=== PATIENT | female | born 1965 | race African-American/Black ===

== ENCOUNTER 2021-04-07 09:53 | Outpatient (CLI) | payer BC, SELFPAY ==
--- NOTE | ~2021-04-07 | MM_ITS ---
EXAMINATION: MM screening vimal BI w iglesia HISTORY: Screening mammogram TECHNIQUE: Craniocaudal and mediolateral oblique 3-D tomosynthesis images were obtained and synthetic 2-D images were generated. CAD analysis was submitted and interpreted. COMPARISON: 09/25/2015 BREAST PARENCHYMAL COMPOSITION: There are scattered areas of fibroglandular density. FINDINGS: There is no evidence of suspicious mass, calcification, or architectural distortion to sugg est malignancy in either breast. There has been no suspicious interval change. IMPRESSION: 1. No mammographic evidence of malignancy. 2. Recommend routine screening mammography in one year. BI-RADS Category 1: Negative Reviewed, dictated and finalized at location A.
--- NOTE | ~2021-04-07 | DEXA_ITS ---
Bone Density Report Name: Beth Schmitt Age: 56 Sex: Female Ethnicity: Black Date of : 1965 Indication: postmenopausal; Referring Provider: GentryCaryn Study: Bone densitometry was performed. Exam Date: April 07, 2021 Accession number: [id number] Bone Density: Region BMD T-score Z-score Classification AP Spine (L1-L4) 0.856 -1.7 -1.5 Osteopenia Femoral Neck (Left) 0.761 -0.8 -0.5 Normal Total Hip (Left) 0.965 0.2 0.1 Normal Total Hip Bilateral Avg 0.968 0.2 0.2 Normal Femoral Neck (Right) 0.766 -0.7 -0.5 Normal Total Hip (Right) 0.970 0.2 0.2 Normal World Health Organization criteria for BMD impression classify patients as: Normal (T-score at or above -1.0), Osteopenia (T-score between -1.0 and -2.5), or Osteoporosis (T-score at or below -2.5). 10-year Fracture Risk(1): Major Osteoporotic Fracture 2.4% Hip Fracture 0.1% Reported Risk Factors: [place] ([place]), Neck BMD=0.766, BMI=29.2 (1) FRAX(R) Version 3.08. Fracture probability calculated for an untreated patient. Fracture probability may be lower if the patient has received treatment. Clinical Information Provided by Patient: Has used the following medications: Vitamin D Patient maximum height was 68 Menopause Age: 44 Drinks caffeinated beverages Onset of menses at age 13 Number of children 3 Impression: The patient has low bone mass, based on the Total Spine T-score. The patient has an estimated ten-year risk of hip fracture of 0.1% and an estimated ten-year risk of major fracture of 2.4%, based on the WHO FRAX algorithm. Discussion: BONE DENSITY IS LOW AT ONE OR MORE SKELETAL SITES. This patient's lowest T-score is low at one or more skeletal sites. It meets the World Health Organization's (WHO) criteria for ?low bone mass? (T-score between -1.0 and -2.5). The patient's 10-year risk of fracture as calculated by FRAX is less than the threshold where pharmacological therapy is recommended by the National Osteoporosis Foundation (NOF). However, all treatment decisions require clinical judgment and consideration of individual patient factors, including patient preferences, comorbidities, previous drug use, risk factors not captured in the FRAX model (e.g., frailty, falls, vitamin D deficiency, increased bone turnover, interval significant decline in bone density) and possible under or overestimation of fracture risk by FRAX. The patient should follow a healthful lifestyle (good nutrition with adequate calcium and vitamin D, and appropriate weight-bearing exercise). Follow-Up: Consider repeating this study in 2 to 3 years to reassess this patient's status, or sooner if there is some new clinical indication. Reported by: on 04/07/2021 10:27:00 AM. Reviewed, dictated an
== END 2021-04-07 09:54 | disposition home or self-care (01) ==
PROVIDERS: PCP Internal Medicine; Visit Provider Internal Medicine
DX: Z12.31 Encounter for screening mammogram for malignant neoplasm of breast (principal); Z78.0 Asymptomatic menopausal state; M85.88 Other specified disorders of bone density and structure, other site
CPT/HCPCS: 77063; 77067; 77080

== ENCOUNTER 2023-10-30 12:43 | Outpatient (CLI) | payer OTHER, SELFPAY ==
--- NOTE | ~2023-10-30 | US_ITS ---
Pelvic ultrasound. Clinical History: Postmenopausal bleeding Technique: Realtime transabdominal and transvaginal scanning of the pelvis was performed. Color flow Doppler and Doppler spectral analysis were performed. Findings: The uterus is anteverted. The endometrial stripe has a thickness of 2-3 mm. There is somew hat ovoid, echogenic structure or material within the endometrial cavity measuring 9 x 3 x 5 mm. Smal l and the fluid also present in the endometrial cavity. Cervical nabothian cysts present. Neither ovary seen. No adnexal mass seen. There is no evidence of free fluid in the cul de sac. Impression: Echogenic material mass within the endometrial cavity. Diagnostic considerations include endometrial polyp versus blood products within the endometrial cavity. Consider hysteroscopy for further evaluati on. Reviewed, dictated and finalized at location . Impression: Echogenic material mass within the endometrial cavity. Diagnostic consideration s include endometrial polyp versus blood products within the endometrial cavity . Consider hysteroscopy for further evaluation.
== END 2023-10-30 12:44 | disposition home or self-care (01) ==
PROVIDERS: PCP Obstetrics & Gynecology; Visit Provider Obstetrics & Gynecology
DX: N95.0 Postmenopausal bleeding (principal)
CPT/HCPCS: 76830; 76856

== ENCOUNTER 2024-03-01 00:16 | Day surgery (SDC) | payer OTHER, SELFPAY ==
[2024-02-22 10:30] VITALS: BMI 30.1
--- NOTE | 2024-02-22 10:41 | SUR.PREOP ---
Report to the Outpatient Waiting Room, entrance under the green pavilion located off [facility], at time 6:30a.m on date 03/01/2024. Planned Procedure Time: 8:30a.m. Time changes happen often and if your time is changed the preop area will call you the afternoon before. - You and your visitor will be asked to self-screen and do not enter if you have any COVID symptoms. - A mask is optional within the hospital at this time. Patients may have clear liquids (water, carbonated beverages, clear teas, apple juice) until 3 hours prior to surgery with a maximum of 20 ounces. - No food from midnight until time of surgery - Infants may have breast milk until 4 hours before surgery, formula 6 hours prior to surgery. - Children will be allowed to drink immediately following surgery. If applicable, please bring a bottle or sippy cup to assist with drinking. Juice, water, soda, and popsicles are readily available. For infants on formula, please bring formula the day of surgery. Pacifiers are allowed. Take the following medications with a SIP of water the morning of surgery: N/A DO NOT STOP ANY OF YOUR OTHER PRESCRIPTION MEDICATIONS PRIOR TO SURGERY ?EXCEPT THE FOLLOWING Medications to discontinue per physician Vitamin and supplements Date to take last dose 02/27/2024 Please no make-up, nail burundian, hairspray, perfume, deodorant, or body powder the day of surgery. No jewelry (including any body piercings) or valuables the day of surgery, leave them at home. Please take a shower or bath the night before, or the morning of, surgery with an antibacterial soap. Wear comfortable, loose fitting clothing. Children are encouraged to wear pajamas. - Jewelry must be removed prior to entering the operating room. Rings and piercings that are not removed may be cut off. - The hospital will not accept responsibility for valuables. - Please leave all valuables, including medications, at home the day of surgery. If you are going home after surgery, a licensed truss driver helper must drive you home. - NO public transportation without another adult if you receive anesthesia. - We recommend that an adult stay with you for 24 hours following discharge. - We also recommend that you do not drive, make important decision, drink alcoholic beverages, or take any drugs that were not prescribed by your health care provider for at least 24 hours after your discharge time. For Pediatric surgeries, we recommend two adults accompany the child home. Follow any additional instructions given to you from your surgeon. If you or anyone in your household have experienced Covid symptoms in the past week, please notify your surgeon or the nurse liaison at the phone number below for possible testing. Telephone instructions given to Beth Schmitt and asked if any additional questions and then verbalized understanding. Patient advised to call surgeon office or pre surgery nurse liaison [phone] if any additional questions.
[2024-03-01 06:33] VITALS: BP 128/75; PULSE 70; RESP 16; TEMP 36.1; O2SAT 100
[2024-03-01 06:35] VITALS: BMI 30.8
[2024-03-01] MEDS: LACTATED RINGERS 1,000 ML 30 ML IV CONT ×2 (07:00→09:22)
[2024-03-01] MEDS: ACETAMINOPHEN 500 MG TABLET 1000 MG PO (07:20)
--- NOTE | 2024-03-01 07:26 | WPDHPUPDATE1 ---
History and Physical Update Update Date/Time: 03/01/24 07:26 History and Physical has been reviewed, including an updated exam of the patient. There are NO changes in the patient's condition. Risks, benefits, and alternatives have been discussed and questions answered. Patient agrees to proceed with procedure.
--- NOTE | 2024-03-01 07:34 | WPDANESEPPF ---
Anes - Initial Pre Proc Eval Procedure: Operation Date: 03/01/24 08:30 Proposed Procedures p Hysteroscopy Dilation and Curettage with Endometrial Ablation - Sal Chavez MD Date/Time: 03/01/24 07:34 Surgeon: Sal Chavez MD Pre Op Diagnosis: abnormal ultrasound finding, post menopausal bleed Patient Data Age: 58 Gender: F Height: 1.73 m Weight: 92 kg Last Vital Signs Temp 96.9 F L 03/01/24 06:33 Pulse 70 03/01/24 06:33 Resp 16 03/01/24 06:33 BP 128/75 03/01/24 06:33 Pulse Ox 100 03/01/24 06:33 O2 Del Method Room Air 03/01/24 06:33 Allergies Allergy/AdvReac Type Severity Reaction Status Date / Time Sulfa (Sulfonamide Allergy Unknown Unknown Verified 03/01/24 07:26 Antibiotics) Home Medications Medication Instructions Recorded Confirmed Type provitilze 2 tablet .Route DAILY 09/14/23 02/22/24 History cetirizine 10 mg capsule (Zyrtec) 10 mg PO DAILY #90 caps 02/12/24 02/22/24 Rx spironolactone 100 mg tablet 50 mg PO DAILY #90 tabs 02/21/24 02/22/24 Rx Women's Multiple Vitamins 4 tablet PO DAILY 02/22/24 02/22/24 History Patient hx anesthesia problems: none Family hx anesthesia problems: none Results Review: All pre-operative results and documents have been reviewed as part of the pre-operative evaluation. [facility] Past Medical History Medical History Arthritis of both knees History of ovarian cyst Seasonal allergies Surgical History Surgical History H/O dilation and curettage Previous section x 3 Family History Family History Grandparent Hypertension, Onset Age: 46 Cerebrovascular accident, Onset Age: 46 Other Family history of malignant neoplasm of breast Family history of malignant neoplasm of breast in first degree relative Family history of rheumatoid arthritis Social History Social History Years smoked: 17 Smoking status: Former smoker Tobacco type: cigarettes Second hand tobacco smoke exposure: No Smoking end date: 08/14/10 Alcohol intake: current Drinks per week: 3 Substance use: never Substance use type: does not use Do You Feel Safe in your Home?: Yes Lack of Transportation: No Lack of Food: Never True Current Housing: I Have Housing Concerned About Future Housing: No Difficulty Paying Gas/Electric Bills: No Difficulty Paying for Meds: No Currently Unemployed: No Difficulty w/ Childcare or Family Care: No Living arrangements: with family Spiritual care concerns: No Anes - Eval Final PreProcedure Day of Procedure 03/01/24 07:34 Patient weight: overweight Heart: regular rate and rhythm Lungs: clear to auscultation Airway: Mallampati scale class II and special considerations (R upper tooth w 3 gems, pt states solid and not easily removable. ) Neurological: alert and oriented Last oral intake: >/= 8 hours ASA classification: II Emergent: no Anesthetic plan: proceed Anesthesia type and monitoring: general GIVS and standard monitoring Results Review: All pre-operative results and documents have been reviewed as part of the pre-operative evaluation. Informed Consent: The patient's anesthetic plan and its attendant risks and benefits were discussed with the patient/family/POA. Questions were solicited and answers provided to the satisfaction of the patient/family/POA.
[2024-03-01] MEDS: LIDOCAINE HCL 1% LOCAL INJ 20 ML VIAL 10 ML INFILTRATE (08:19)
[2024-03-01] MEDS: ceFAZolin 2 GM/D5W 50 ML 2 GM/50 ML BAG IVPB (08:19)
[2024-03-01 09:22] VITALS: BP 123/79; PULSE 64; RESP 14; O2SAT 99
--- NOTE | 2024-03-01 09:30 | W.PM.PROC2 ---
Procedure Note - Detailed Date of Procedure 03/01/24 Pre-op Diagnosis abnormal ultrasound finding, post menopausal bleed Post-op Diagnosis Other (Foreign object in cervical canal) Procedure Performed Dilation and curettage hysteroscopy with removal of foreign object which was retained stitch Surgeon Sal Chavez MD Anesthesia MAC and Local Indications abnormal ultrasound finding Findings uterus sound to 7 and 0.5 cm the uterine cavity was atrophic appearing at the upper cervix was a large stitch it looked like at the Villalba stitch that was approximately 2 cm long and imbedded in the upper cervix lower uterine segment area which was removed there was a small residual thread at the insertion site that could not be removed Description of Procedure after informed consent was obtained patient was taken to operating room and adequate IV sedation was administered she was placed in high lithotomy position and prepped and draped in sterile fashion attention was turned to the vagina speculum inserted single-tooth tenaculum placed on the anterior lip of the cervix. 10 cc 1% lidocaine was injected at the cervical vaginal interface at 2:58 a.m. and 10 position. The uterus was sound to 7.5 cm. And a dilator size 4 was passed. The hysteroscope was inserted. Findings per above. The rest of the cavity was normal. Several instruments were used to grab the suture it was grabbed in pieces. It appeared to be approximately 2 cm long and embedded at the upper cervix lower uterine segment area. It appeared to be a 0 Ethibond stitch. The hysteroscopic grasper scissors and the MyoSure instrument were used to remove suture in multiple pieces. Also the myoma forceps and cove working instruments were used. There remained a small very small mm size residual piece of the stitch at its insertion which would not unattach. Curettage performed minimal tissue obtained. Estimated Blood Loss 5 Drains No Packing No Pathology Yes (endometrial curettings scant) Complications No immediate complications Condition Stable Disposition Same day [facility] Billing Surgery - Charge Forward: Surgery Billing
[2024-03-01 09:50] VITALS: BP 129/83; PULSE 60; RESP 16; O2SAT 99
[2024-03-01] MEDS: oxyCODONE HCL (*CRX) 5 MG TAB IR PO (09:50)
[2024-03-01 10:10] VITALS: BP 120/67; PULSE 62; RESP 16
== END 2024-03-01 10:20 | disposition home or self-care (01) ==
PROVIDERS: Visit Provider Obstetrics & Gynecology
PROC: 0U5B8ZZ Destruction of Endometrium, Via Natural or Artificial Opening Endoscopic (ICD-10-PCS; CPT 58563; principal; 2024-03-01 08:30)
DX: R93.89 Abnormal findings on diagnostic imaging of other specified body structures (principal); N95.0 Postmenopausal bleeding; T19.3XXA Foreign body in uterus, initial encounter; Z87.891 Personal history of nicotine dependence
CPT/HCPCS: 58558; 88305; A9270; J0690; J2250; J2405; J2704; J3010; J7120

== ENCOUNTER 2024-03-14 12:44 | Emergency (ER) | payer OTHER, SELFPAY ==
[2024-03-14 12:54] VITALS: BP 143/84; PULSE 84; RESP 16; TEMP 36.7; O2SAT 100
--- NOTE | 2024-03-14 12:54 | ED.SKABFB ---
HPI - Skin/Abscess/Foreign Bdy General Chief complaint: Skin/Abscess/Foreign Body Stated complaint: SKIN IRRITATION Time Seen by Provider: 03/14/24 12:55 Source: patient, RN notes reviewed and old records reviewed Mode of arrival: ambulatory Limitations: no limitations History of Present Illness HPI narrative: 58-year-old female to [facility] complaint rash to bilateral axilla that started yesterday. Patient reports changing her deodorant approximately 3 weeks ago without an issue. Patient states that yesterday she used her new deodorant and layered her old deodorant over it. Patient endorses the rash began shortly after. Patient has attempted to treat the area by keeping it clean and dry. patient denies any other potential irritants, pertinent medical history, cough, fever, shortness of breath, recent illness. Respirations even and nonlabored. Patient in no acute distress. Related Data Home Medications Medication Instructions Recorded Confirmed provitilze 2 tablet .Route DAILY 09/14/23 03/14/24 Women's Multiple Vitamins 4 tablet PO DAILY 02/22/24 03/14/24 Allergies Allergy/AdvReac Type Severity Reaction Status Date / Time Sulfa (Sulfonamide Allergy Unknown Unknown Verified 03/14/24 12:53 Antibiotics) Review of Systems Review of Systems: All systems reviewed & are unremarkable except as noted in HPI and below Constitutional: Constitutional: Reports no additional constitutional complaints Eyes: Eyes: Reports no additional eye complaints ENT: Reports system reviewed and no additional complaints, except as documented Cardiovascular: Cardiovascular: Reports no additional cardiovascular complaints, Denies chest pain and Denies dyspnea Respiratory: Respiratory: Reports no additional respiratory complaints, Denies cough and Denies dyspnea Musculoskeletal: Musculoskeletal: Reports no additional musculoskeletal complaints Integumentary/Breasts: Skin/Breast: Reports as per HPI and Reports rash (bilateral axilla) Neurologic: Reports system reviewed and no additional complaints, except as documented Psychiatric: Psychiatric: Reports no additional psychiatric complaints PMFSH Past Medical History Medical History Arthritis of both knees History of ovarian cyst Seasonal allergies Surgical History Surgical History H/O dilation and curettage Previous section x 3 Family History Family History Grandparent Hypertension, Onset Age: 46 Cerebrovascular accident, Onset Age: 46 Other Family history of malignant neoplasm of breast Family history of malignant neoplasm of breast in first degree relative Family history of rheumatoid arthritis Social History Social History Years smoked: 17 Smoking status: Former smoker Tobacco type: cigarettes Second hand tobacco smoke exposure: No Smoking end date: 08/14/10 Alcohol intake: current Drinks per week: 3 Substance use: never Substance use type: does not use Do You Feel Safe in your Home?: Yes Lack of Transportation: No Lack of Food: Never True Current Housing: I Have Housing Concerned About Future Housing: No Difficulty Paying Gas/Electric Bills: No Difficulty Paying for Meds: No Currently Unemployed: No Difficulty w/ Childcare or Family Care: No Living arrangements: with family Spiritual care concerns: No Comments At the time of my signature, I reviewed and agree with the nursing past medical, surgical, social, and family history. There is no relevant family history pertinent to the patient complaint. Exam Const: General: cooperative, healthy appearing, comfortable, no acute distress, alert and well nourished Nutritional Appearance: well nourished Orientat
== END 2024-03-14 13:18 | disposition home or self-care (01) ==
PROVIDERS: Emergency Provider Nurse Practitioner Family
DX: L25.9 Unspecified contact dermatitis, unspecified cause (principal); Z87.891 Personal history of nicotine dependence; M17.0 Bilateral primary osteoarthritis of knee
CPT/HCPCS: 99211; G0463

== ENCOUNTER 2024-07-05 15:12 | Outpatient (CLI) | payer OTHER, SELFPAY ==
--- NOTE | ~2024-07-05 | MM_ITS ---
EXAMINATION: MM screening vimal BI w iglesia HISTORY: Screening mammogram TECHNIQUE: Craniocaudal and mediolateral oblique 3-D tomosynthesis images were obtained and synthetic 2-D images were generated. CAD analysis was submitted and interpreted. COMPARISON: 04/07/2021 bilateral screening mammogram BREAST PARENCHYMAL COMPOSITION: The breasts are almost entirely fatty. FINDINGS: There is no evidence of suspicious mass, calcification, or architectural distortion to sugg est malignancy in either breast. There has been no suspicious interval change. IMPRESSION: 1. No mammographic evidence of malignancy. 2. Recommend routine screening mammography in one year. BI-RADS Category 1: Negative Reviewed, dictated and finalized at location A. [employer]
== END 2024-07-05 15:13 | disposition home or self-care (01) ==
LOC: ANHIMG 15:14
PROVIDERS: PCP Family Medicine; Visit Provider Obstetrics & Gynecology
DX: Z12.31 Encounter for screening mammogram for malignant neoplasm of breast (principal)
CPT/HCPCS: 77063; 77067

== ENCOUNTER 2025-07-07 13:46 | Outpatient (CLI) | payer OTHER, SELFPAY ==
--- NOTE | ~2025-07-07 | MM_ITS ---
EXAMINATION: MM screening vimal BI w iglesia HISTORY: Screening TECHNIQUE: Craniocaudal and mediolateral oblique 3-D tomosynthesis images were obtained and synthetic 2-D images were generated. CAD analysis was submitted and interpreted. COMPARISON: No prior mammogram is available for comparison at this institution. BREAST PARENCHYMAL COMPOSITION: Not dense: There are scattered areas of fibroglandular density. FINDINGS: There is no evidence of suspicious mass, calcification, or architectural distortion to suggest malignancy in either breast. There has been no suspicious interval change. IMPRESSION: 1. No mammographic evidence of malignancy. 2. Recommend routine screening mammography in one year. BI-RADS Category 1: Negative Reviewed, dictated and finalized at location [facility]
--- OUTSIDE RECORDS SUMMARY | 2025-07-07 16:18 | XMS_ITS | Clinical Summary ---
Author Organization [facility] [place] [address] Address [address] [facility] 5th [place] [address] Care Team Providers Care Business Analysis Professional Name Role Phone Stacy Santos Primary Care Provider [phone] Sal Chavez MD Unavailable [phone] Allergies Active Allergy Reactions Criticality Noted Date Comments Sulfa Anaphylaxis High 02/27/2025 Medications cetirizine (ZyrTEC) 10 mg tabletIndication s:Non-seasonal allergic rhinitis, unspecified trigger Take 1 tablet (10 mg total) by mouth daily 90 tablet 3 5 06/26/20 26 Active cetirizine (ZyrTEC) 10 mg tabletIndication s:Non-seasonal allergic rhinitis, unspecified trigger Take 1 tablet (10 mg total) by mouth daily 90 tablet 2 5 06/26/20 25 Discontinu ed(Reorder ) Active Problems Problem Noted Date Diagnosed Date Paresthesia of both hands 02/27/2025 Assessment & Plan (02/27/2025 4:58 PM CDT): 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 Nerve conduction study ordered. Referred to Hand specialist for further eval/mgmt. Positive serological test result 06/12/2024 Overview (06/12/2024): Reactive screening HBV test HBsAg non reactive Anti-HBc REACTIVE Anti-HBs non reactive Non-seasonal allergic rhinitis 06/11/2024 Assessment & Plan (06/26/2025 12:18 PM RECORD KEEPER): Clinically improved, continue current prescription medications, cetirizine. Assessment & Plan (06/11/2024 2:55 PM CDT): Stable. Cont. Current prescription medications. Dry skin dermatitis 06/11/2024 Assessment & Plan (06/11/2024 11:36 AM CDT): Trial of OTC hydrocortisone ointment, bid for up to 2 wks prn rash. Encounters Date Type Department Care Team Description 06/26/2025 11:00 AM RECORD KEEPER Lab [facility] Lab [address] [place] [address] Annual physical exam; Screening for blood or protein in urine; Screening for thyroid disorder; Encounter for lipid screening for cardiovascular disease; Encounter for screening examination for impaired glucose regulation and diabetes mellitus; Encounter for screening for other digestive system disorders; Screening for deficiency anemia 06/26/2025 10:15 AM RECORD KEEPER Office Visit [facility] Family Medicine at [facility] [address] [facility] [address] [place] [address] Stacy Santos DO Annual physical exam (Primary Dx); Non-seasonal allergic rhinitis, unspecified trigger; Screening for deficiency anemia; Encounter for screening for other digestive system disorders; Encounter for screening examination for impaired glucose regulation and diabetes mellitus; Encounter for lipid screening for cardiovascular disease; Screening for thyroid disorder; Screening for blood or protein in urine; Encounter for screening mammogram for malignant neoplasm of breast 06/26/2025 Results Follow-Up [facility] Family Medicine at [facility] [address] [facility] [address] [place] [address] Stacy Santos DO Thyroid Function [facility], Lipid panel, Hemoglobin A1c, Additional followed-up results: 5 from Last 3 Months Immunizations Immunization Administration Dates Next Due Hep A, Adult 07/18/2017 Influenza, Unspecified 06/24/2025(Deferr ed: Patient Refused),06/11/2024(Deferred: Worship exemption),05/14/2024(Deferred: Patient Refused),05/14/2023(Deferred: Patient Refused) Surgical History Surgery Date Site/Laterality Comments SECTION DILATION AND CURETTAGE OF UTERUS Family History Medical History Relation Name Comments Alcohol abuse Father Arthritis Father Heart disease Father Hypertension Father Relation Name Status Comments Father Mother Alive Social History Tobacco Use Types Packs/Day Years Used Date Smoking Tobacco: Never Smokeless Tobacco: Never Tobacco Cessation:Counseling Given: Not Answered Alcohol Use Standard Drinks/Week Comments Yes 0 (1 standard drink = 0.6 oz pur e alcohol) PHQ-2 Answer Date Recorded PHQ-2 Total Score (If total score is 3 or more points, staff should administer the PHQ-9) 0 06/26/2025 PHQ-9 Answer Date Recorded PHQ-9 Total Score 3 06/26/2025 AUDIT-C Answer Date Recorded Q1: How often do you have a drink containing alc ohol? Monthly or less 06/26/2025 Q2: How many drinks containi ng alcohol do you have on a typical day when you are drinking? 1 or 2 06/26/2025 Q3: How often do you have si x or more drinks on one occasion? Never 06/26/2025 Comments No Sex and Gender Information Value Date Recorded Sex Assigned at Not on file Legal Sex Female 6:21 PM RECORD KEEPER Gender Identity Female 06/12/2024 1:12 PM CDT Sexual Orientation Not on file Last Filed Vital Signs Vital Sign Reading Time Taken Comments Blood Pressure 128/72 06/26/2025 10:01 AM RECORD KEEPER Pulse 72 06/26/2025 10:01 AM RECORD KEEPER Temperature 36.7 C (98 F) 06/26/2025 10:01 AM RECORD KEEPER Respiratory Rate 16 06/26/2025 10:01 AM RECORD KEEPER Oxygen Saturation 99% 06/26/2025 10:01 AM RECORD KEEPER Inhaled Oxygen Concentration - - Weight 94.2 kg (207 lb 9.6 oz) 06/26/2025 10:01 AM RECORD KEEPER Height 175.3 cm (5' 9) 02/27/2025 3:56 PM CDT Body Mass Index 30.66 02/27/2025 3:56 PM CDT Plan of Treatment Health Maintenance Due Date Last Done Comments Covid-19 Vaccine (2024-09 6 season) 2025 07/30/2021, 11/08/2020 Breast Cancer Screening-Mammogram 07/05/2025 07/05/2024 Influenza Vaccine (#1) 2026 Postp oned from 04/14/2025 (Patient declined, but will receive in the future) Zoster Vaccine (1 of 2) 02/27/2026 Post poned from 2016 (Insurance / Financial) Depression Screening 06/26/2026 06/26/2025, 06/26/2025, 06/11/2024 Regular Well Visit/Exam 18-64 06/26/2026, 06/11/2024 DTaP/Tdap/Td Vaccine (1 - Tdap) 02/27/2027 Postponed from 03/29 (Insurance / Financial) Colon Cancer Screening-Colonoscopy 03/21/2027 03/21/2017 Cervical Cancer Screening 02/13/2029 02/14/2024 Hepatitis B Screening Completed 09/13/2024 Hepatitis C Screening Completed 09/13/2024 , 06/11/2024 Pneumococcal vaccine <65 Aged Out No longer eligible based on patient's age to complete this topic Procedures Procedure Name Priority Date/Time Associated Diagnosis Comments URINALYSIS AND REFLEX TO MICROSCOPIC AND CULTURE Routine 06/26/2025 11:05 AM RECORD KEEPER Annual physical exam Screening for blood or protein in urine EGFR Routine 06/26/2025 11:02 AM RECORD KEEPER Annual physical exam Encounter for screening for other digestive system disorders DIFFERENTIAL AUTO Routine 06/26/2025 11:02 AM RECORD KEEPER Annual physical exam Screening for deficiency anemia CBC WITH AUTO DIFFERENTIAL Routine 06/26/2025 11:02 AM RECORD KEEPER Annual physical exam Screening for deficiency anemia COMPREHENSIVE METABOLIC PANEL Routine 06/26/2025 11:02 AM RECORD KEEPER Annual physical exam Encounter for screening for other digestive system disorders HEMOGLOBIN A1C Routine 06/26/2025 11:02 AM RECORD KEEPER Annual physical exam Encounter for screening examination for impaired glucose regulation and diabetes mellitus LIPID PANEL Routine 06/26/2025 11:02 AM RECORD KEEPER Annual physical exam Encounter for lipid screening for cardiovascular disease THYROID FUNCTION CASCADE Routine 06/26/2025 11:02 AM RECORD KEEPER Annual physical exam Screening for thyroid disorder HEPATITIS C ANTIBODY Routine 09/13/2024 10:36 AM RECORD KEEPER Abnormal liver function SCREENING MAMMOGRAM 2D BILATERAL Schedule Routine, Read Routine (OP Routine) 07/05/2024 COLONOSCOPY Routine 03/21/2017 from Last 3 Months or Most Recently Relevant to Health Maintenance Results * Urinalysis reflex to microscopic and culture Urine, clean voided (06/26/2025 11:05 AM RECORD KEEPER) Color, ur Straw Yellow Clarity, ur Clear Clear [facility] Specific gravity, ur 1.007 1.003 - 1.030 [facility] pH, urine 7.0 [facility] Comment: Interpretive Data U rine pH is affected by diet, medications, systemic acid-base disturbances, and renal tubular function. pH may affect urinary stone formation. For example, urine pH below 6.0 may help reduce the tendency for calcium phosphate stones and pH greater than 6.0 may reduce the tendency for uric acid stone formation. Source: [facility] Current Interpretive Data was last revised on 2017 Protein, ur ql Negative Negative [facility] Glucose, ur ql Negative Negative [facility] Ketones, ur Negative Negative [facility] Bilirubin, ur Negative Negative [facility] Blood, ur Negative Negative [facility] Urobilinogen, ur <2.0 <2.0 mg/dL [facility] Nitrite, ur Negative Negative [facility] Leukocyte esterase, ur Negative Negative [facility] UA reflex comment Reflex conditions for microscopic UA and culture not met. [facility]O Urine, clean voided 06/26/2025 11:05 AM RECORD KEEPER 06/26/2025 11:19 AM RECORD KEEPER Narrative [facility] - 06/26/2025 11:26 AM RECORD KEEPER Urine Collection Method->Clean Catch us Stacy Santos DO LAB MICROBIOLOGY - GENERAL ORDERABLES Final Result DAG[facility]ERTO [address] [facility] Department [place] [address] * eGFR (06/26/2025 11:02 AM RECORD KEEPER) Pathologist [facility] eGFR 85 >=60 mL/min/1. 73 m2 Comment: Interpretive Data Reference Interval Normal >/= 90 mL/min/1.73m2 Mildly decreased* 60 - 89 mL/min/1.73m2 Mildly to moderately decreased 45 - 59 mL/min/1.73m2 Moderately to severely decreased 30 - 44 mL/min/1.73m2 Severely decreased 15 - 29 mL/min/1.73m2 Kidney Failure < 15 mL/min/1.73m2 *Relative to young adult level Estimated glomerular filtration rate is determined by the 2020 CKD-EPI equation recommended by the National Kidney Foundation (A Unifying Approach to GFR Estimation: Recommendations of the NKF-ASK Task Force on Reassessing the Inclusion of Race in Diagnosing Kidney Disease, JASN 2020). The CKD-EPI equation should not be used for patients with unstable renal function and has not been validated in children and those over 70. Current interpretive data was last reviewed 2021. Blood 06/26/2025 11:0 2 AM RECORD KEEPER 06/26/2025 11:17 AM RECORD KEEPER us Stacy Santos DO LAB BLOOD ORDERABLES Final Result DAGOBERTO [address] [facility] Department [place] [address] * Differential, auto (06/26/2025 11:02 AM RECORD KEEPER) [facility] Neutrophil abs 3.00 1.50 - 6.50 K/cumm Imm gran abs 0.01 0.00 - 0.10 K/cumm [facility] Lymphocyte abs 1.95 0.80 - 3.30 K/cumm [facility] Monocyte abs 0.30 0.20 - 0.80 K/cumm [facility] Eosinophil abs 0.10 0.00 - 0.50 K/cumm [facility] Basophil abs 0.02 0.00 - 0.10 K/cumm [facility] Neutrophil pct 55.7 % [facility] Comment: Interpretive Data Percent cell count reference ranges are not reported, since discordance with absolute values may lead to misinterpretation of CBC data. Current Interpretive Data was last revised on 2017. Imm gran pct 0.2 % [facility] Comment: Interpretive Data Percent cell count reference ranges are not reported, since discordance with absolute values may lead to misinterpretation of CBC data. Current Interpretive Data was last revised on 2017. Lymphocyte pct 36.2 % [facility] Comment: Interpretive Data Percent cell count reference ranges are not reported, since discordance with absolute values may lead to misinterpretation of CBC data. Current Interpretive Data was last revised on 2017. Monocyte pct 5.6 % [facility] Comment: Interpretive Data Percent cell count reference ranges are not reported, since discordance with absolute values may lead to misinterpretation of CBC data. Current Interpretive Data was last revised on 2017. Eosinophil pct 1.9 % [facility] Comment: Interpretive Data Percent cell count reference ranges are not reported, since discordance with absolute values may lead to misinterpretation of CBC data. Current Interpretive Data was last revised on 2017. Basophil pct 0.4 % [facility] Comment: Interpretive Data Percent cell count reference ranges are not reported, since discordance with absolute values may lead to misinterpretation of CBC data. Current Interpretive Data was last revised on 2017. Blood 06/26/2025 11:0 2 AM RECORD KEEPER 06/26/2025 11:17 AM RECORD KEEPER Stacy Santos DO LAB BLOOD ORDERABLES Final Result Performing Organization Address [facility] Co de Phone Number [facility] [address] [facility] Department [place] [address] * Thyroid Function [facility] (06/26/2025 11:02 AM RECORD KEEPER) TSH 2.37 0.30 - 4.20 mcIUnit/mL Blood 06/26/2025 11:0 2 AM RECORD KEEPER 06/26/2025 11:17 AM RECORD KEEPER Stacy Santos DO LAB BLOOD ORDERABLES Final Result [facility] [address] [facility] [place] [address] * (ABNORMAL) CBC with auto differential (06/26/2025 11:02 AM RECORD KEEPER) [facility] WBC 5.38 3.80 - 9.90 K/cumm Hgb 12.5 11.9 - 15.5 g/dL [facility] Hct 39.2 35.6 - 45.5 % [facility] Plt 306 150 - 400 K/cumm [facility] MPV 9.2 9.1 - 12.3 fL [facility] RBC 4.18 3.90 - 5.20 M/cumm [facility] MCV 93.8 81.3 - 96.4 fL [facility] MCH 29.9 27.1 - 33.3 pg [facility] MCHC 31.9(L) 32.3 - 35.7 g/dL [facility] RDW CV 12.5 11.1 - 14.9 % [facility] RDW SD 42.9 35.7 - 48.1 fL [facility] NRBC abs 0.00 0.00 - 0.01 K/cumm [facility] Blood 06/26/2025 11:0 2 AM RECORD KEEPER 06/26/2025 11:17 AM RECORD KEEPER Stacy Santos DO LAB BLOOD ORDERABLES Final Result Performing Organization Address City/State/[facility] Co de Phone Number [address] [place] [address] * Hemoglobin A1c (06/26/2025 11:02 AM RECORD KEEPER) [facility] Hgb A1C 5.3 4.0 - 5.6 % Estimated Average Glucose 105 mg/dL [facility] Comment: The ADA recommends reporting an estimated Average Glucose (eAG) with all Hemoglobin A1c results using the equation derived from a study of 507 normal and diabetic adults. Minority populations were underrepresented and children were not included. (Diabetes Care 31:8085-4941, 2008). The eAG is not equivalent to a fasting glucose. Blood 06/26/2025 11:0 2 AM RECORD KEEPER 06/26/2025 11:17 AM RECORD KEEPER us Stacy Mcelroybritta Santos DO LAB BLOOD ORDERABLES Final Result DAGOBERTO DOBBINS [address] [facility] Department [place] [address] * Lipid panel (06/26/2025 11:02 AM RECORD KEEPER) Cholesterol 182 30 - 199 mg/dL Comment: Interpretive Data Ages < or = 19 years Acceptable: <170 mg/dL Borderline high: 170-199 mg/dL High: >or= 200 mg/dL Ages > or = 20 years Desirable: <200 mg/dL Borderline high: 200-239 mg/dL High: >or= 240 mg/dL Literature References: 1. Expert Panel on Integrated Guidelines for Cardiovascular Health and Risk Reduction in Children and Adolescents. Pediatrics 2011;128:S213 2. NCEP Expert Panel. Circulation 2004;110:227 Current Interpretive Data was last revised on 2018. Triglycerides 57 <=149 mg/dL [facility] Comment: Interpretive Data Ages < or = 9 years Acceptable: <75 mg/dL Borderline high: 75-99 mg/dL High: >or= 100 mg/dL Ages 10 to 20 years Acceptable: <90 mg/dL Borderline high: 90-129 mg/dL High: >or= 130 mg/dL Ages > or = 20 years Desirable: <150 mg/dL Borderline high: 150-199 mg/dL High: 200-499 mg/dL Very high: >or= 499 mg/dL Literature References: 1. Expert Panel on Integrated Guidelines for Cardiovascular Health and Risk Reduction in Children and Adolescents. Pediatrics 2011;128:S213 2. NCEP Expert Panel. Circulation 2004;110:227 Current Interpretive Data was last revised on 2018. HDL 67 >=40 mg/dL [facility] Comment: Interpretive Data Ages < or = 19 years Acceptable: >45 mg/dL Borderline low: 40-45 mg/dL Low: <40 mg/dL Ages > or = 20 years Desirable: >or= 60 mg/dL Low: <40 mg/dL Literature References: 1. Expert Panel on Integrated Guidelines for Cardiovascular Health and Risk Reduction in Children and Adolescents. Pediatrics 2011;128:S213 2. NCEP Expert Panel. Circulation 2004;110:227 Current Interpretive Data was last revised on 2018. LDL, calculated 104 <=129 mg/dL [facility] DOBBINS Comment: Interpretive Data Ages < or = 19 years Acceptable: <110 mg/dL Borderline high: 110-129 mg/dL High: >or= 130 mg/dL Ages > or = 20 years Optimal: <100 mg/dL Near optimal: 100-129 mg/dL Borderline high: 130-159 mg/dL High: >160 mg/dL Calculated using the Semaj LDL-C estimating equation. This equation was implemented on 2024. Prior to this date LDL-C was estimated using the Friedewald equation. Literature References: 1. Expert Panel on Integrated Guidelines for Cardiovascular Health and Risk Reduction in Children and Adolescents. Pediatrics 2011;128:S213 2. NCEP Expert Panel. Circulation 2004;110:227 3. Semaj Meadows et al. ANASTACIO Cardiol. 2019December 12;5(5):540-548. doi: 10.1001/jamacardio.2020.0013 Current Interpretive Data was last revised on 2024. Non-HDL Cholesterol 115 mg/dL [facility] DOBBINS Comment: Interpretive Data Ages < or = 19 years Acceptable: <120 mg/dL Borderline high: 120-144 mg/dL High: >145 mg/dL Ages > or = 20 years When triglycerides are >200 mg/dL, Non-HDL cholesterol is a secondary target of therapy with treatment goals that are 30 mg/dL greater than the LDL cholesterol target. Literature References: 1. Expert Panel on Integrated Guidelines for Cardiovascular Health and Risk Reduction in Children and Adolescents. Pediatrics 2011;128:S213 2. NCEP Expert Panel. Circulation 2004;110:227 Current Interpretive Data was last revised on 2018. Chol/HDL ratio 3 [facility]AG[facility]ERTO DOBBINS Blood 06/26/2025 11:0 2 AM RECORD KEEPER 06/26/2025 11:17 AM RECORD KEEPER us Stacy Santos DO LAB BLOOD ORDERABLES Final Result [facility]ERTO [address] [facility] Department [place] [address] * Comprehensive metabolic panel (06/26/2025 11:02 AM RECORD KEEPER) [facility] Sodium 141 135 - 145 mmol/L Potassium, pl 4.0 3.3 - 4.9 mmol/L [facility] Chloride 103 97 - 110 mmol/L [facility] CO2 30 22 - 32 mmol/L [facility] Anion gap 8 2 - 15 mmol/L [facility] BUN 14 6 - 25 mg/dL [facility] Creatinine 0.80 0.60 - 1.10 mg/dL [facility] Glucose 91 70 - 199 mg/dL [facility] Comment: Interpretive Data Fasting glucose >/= 126 mg/dl is diagnostic for diabetes. Fasting is defined as no caloric intake for at least 8 hours. Fasting glucose between 100 mg/dl to 125 mg/dl is diagnostic of prediabetes. In a patient with classic symptoms of hyperglycemia or hyperglycemic crisis, a random glucose >/= 200 mg/dl is diagnostic for diabetes. In the absence of unequivocal hyperglycemia, results should be confirmed by repeat testing. The classification and Diagnosis of Diabetes Diabetes Care 2021; 46: S19-S40. Current interpretive data was last revised 2022. Calcium 9.7 8.5 - 10.3 mg/dL [facility] Bilirubin, total 0.5 0.1 - 1.2 mg/dL [facility] Protein, pl 7.4 6.5 - 8.5 g/dL [facility] Albumin 4.4 3.5 - 5.0 g/dL [facility] Alk phos 69 40 - 130 Units/L [facility] ALT 19 7 - 45 Units/L [facility] AST 23 10 - 45 Units/L [facility] Blood 06/26/2025 11:0 2 AM RECORD KEEPER 06/26/2025 11:17 AM RECORD KEEPER us Stacy Santos DO LAB BLOOD ORDERABLES Final Result [facility] [address] [facility] Department [place] [address] * Hepatitis C antibody Blood (09/13/2024 10:36 AM RECORD KEEPER) [facility] Hep C Ab Nonreactive Nonreactive Comment:Antibodies to HCV no t detected. Does NOT exclude the possibility of recent exposure to HCV. Current interpretive data was last revised on 22 Blood 09/13/2024 10:3 6 AM RECORD KEEPER 09/13/2024 11:08 AM RECORD KEEPER Gerald Cheng MD LAB MICROBIOLOGY - GENERAL ORDERABLES Final Result [facility]AG[facility] [address] [facility] Department [place] [address] * Screening Mammogram 2D Bilateral (07/05/2024) Anatomical Region Laterality Modality Breast Bilateral Mammography Historical Provider IMG MAMMO PROCEDURES Mar l Result * Colonoscopy (03/21/2017) Anatomical Region Laterality Modality Other 03/21/2017 Historical Provider ENDOSCOPY PROCEDURES Mar l Result from Last 3 Months or Most Recently Relevant to Health Maintenance Insurance [facility] Care Teams Business Analysis Professional Relationship Specialty Start Date End Date Stacy Santos DO [address] [facility] [address] [place] [address] PCP - General Family Medicine 06/11/24 Sal Chavez MD [address] [facility] [address] [facility] [address] [place] [address] Referring Physician Obstetrics and Gynecology 06/11/24
--- OUTSIDE RECORDS SUMMARY | 2025-07-07 16:18 | XMS_ITS | Encounter Summary ---
Author Organization [facility] Address [address] [place] [address] Care Team Providers Care Dynamometer Tester Engine Name Role Phone Stacy Santos DO Primary Care Provider [phone] Sal Chavez MD Unavailable [phone] Encounter Details Date Type Department Care Team (Late st Contact Info) Description 06/26/2025 Results Follow-Up [facility] Family Medicine at [address] [address] Stacy Santos DO [address] [place] [address] Thyroid Function [place], Lipid panel, Hemoglobin A1c, Additional followed-up results: 5 Social History Tobacco Use Types Packs/Day Years Used Date Smoking Tobacco: Never Smokeless Tobacco: Never Alcohol Use Standard Drinks/Week Comments Yes 0 [...] on file 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 Monthly or less 06/26/2025 10:01 AM Rossy Orona MA Q2: How many drinks containing alcohol do you have on a typical day when you are drinking? 1 or 2 06/26/2025 10:01 AM Rossy Orona MA Q3: How often do you have six or more drinks on one occasion? Never 06/26/2025 10:01 AM Rossy Orona MA * BP Location Answer Date of Assessment Author Left arm 06/26/2025 10:01 AM Tessa Orona MA documented as of this encounter Plan of Treatment Not on file documented as of this encounter Visit Diagnoses Not on filedocumented in this encounter Care Teams Dynamometer Tester Engine Relationship Specialty Start Date End Date Stacy Santos DO [address] [facility] [address] [address] PCP - General Family Medicine 06/11/24 Sal Chavez MD [address] [address] Referring Physician Obstetrics and Gynecology 06/11/24 documented as of this encounter
== END 2025-07-07 13:47 | disposition home or self-care (01) ==
PROVIDERS: PCP Family Medicine; Visit Provider Family Medicine
DX: Z12.31 Encounter for screening mammogram for malignant neoplasm of breast (principal)
CPT/HCPCS: 77063; 77067

== ENCOUNTER 2025-08-10 10:09 | Emergency (ER) | payer BC, SELFPAY ==
--- NOTE | 2025-08-10 10:25 | ED_ITS ---
HPI - URI/Sore Throat General Chief Complaint: Upper Respiratory Infection Stated Complaint: cough, runny nose, body aches Time Seen by Provider: 08/10/25 10:40 Source: patient Mode of arrival: ambulatory Limitations: no limitations History of Present Illness HPI Narrative: Eda is a 60-year-old female patient presenting to the clinic today with complaints of cough, runny nose, body aches, sinus pressure, sinus congestion, and blowing out green nasal drainage and coughing up green phlegm for over 1 week. Denies any known fever. Denies any chest pain or shortness of breath. MD elicited complaint: sore throat and nasal congestion Related Data Home Medications ?Medication ?Instructions ?Recorded ?Confirmed ?Last Taken ?Type provitilze 2 tablet .Route DAILY 03/14/24 Unknown History Women's Multiple Vitamins 4 tablet PO DAILY 02/22/24 0 03/14/24 02/27/24 History Allergies Allergy/AdvReac Type Severity Reaction Status Date / Time Sulfa (Sulfonamide Allergy Unknown Unknown Verified 03/14/24 12:53 Antibiotics) Review of Systems Review of Systems: Pertinent positives per HPI. Patient denies any fever, chills, rash, visual changes, dizziness, shortness of breath, chest pain, palpitations, nausea, vomiting, diarrhea, constipation, abdominal pain, or any urinary issues. [facility] Past Medical History Medical History Arthritis of both knees History of ovarian cyst Seasonal allergies Surgical History Surgical History H/O dilation and curettage Previous section x 3 Family History Family History Grandparent Hypertension, Onset Age: 46 Cerebrovascular accident, Onset Age: 46 Other Family history of malignant neoplasm of breast Family history of malignant neoplasm of breast in first degree relative Family history of rheumatoid arthritis Social History Social History Years smoked: 17 Smoking status: Former smoker Tobacco type: cigarettes Second hand tobacco smoke exposure: No Smoking end date: 08/14/10 Alcohol intake: current Drinks per week: 3 Substance use: never Substance use type: does not use Lack of Transportation: No Lack of Food: Never True Current Housing: I Have Housing Concerned About Future Housing: No Difficulty Paying Gas/Electric Bills: No Difficulty Paying for Meds: No Currently Unemployed: No Difficulty w/ Childcare or Family Care: No Living arrangements: with family Spiritual care concerns: No Comments At the time of my signature, I reviewed and agree with the nursing past medical, surgical, social, and family history. There is no relevant family history pertinent to the patient complaint. Exam Narrative: General: Well-developed, well nourished, in no apparent distress Head: Normocephalic, atraumatic Eyes: Pupils equally round and reactive to light bilaterally, EOM intact, sclera and conjunctive clear, no discharge, lids normal Ears: TMs intact and congested, ear canals clear, no drainage, grossly hearing normal. Nose: Nares patent, green nasal discharge, moderate inflammation, maxillary sinus tenderness. Mouth: Oral pharynx without lesions or masses, good dentition, MMM. Postnasal drip Neck: Supple, trachea midline, no enlargement of anterior or posterior cervical nodes, no thyroid masses or goiter palpable. Cardio: Regular rate and rhythm, s1 and s2 normal, no murmur appreciated. Resp: Clear to auscultation bilaterally, no rhonchi, rales, wheezing or rubs Course Course Level of Care: Express Care Visit Vital Signs Vital signs: Vital Signs Temperature 36.0 C L 08/10/25 10:37 Pulse Rate 81 08/10/25 10:37 Respiratory Rate 16 08/10/25 10:37 Blood Pressure 133/82 08/10/25 10:37 Pulse Oximetry 97 08/10/25 10:37 Temperature 36.0 C L 08/10/25 10:37 Pulse Rate 81 08/10/25 10:37 Respiratory Rate 16 08/10/25 10:37 Blood Pressure 133/82 08/10/25 10:37 Pulse Oximetry 97 08/10/25 10:37 MDM MDM Narrative Medical decision making narrative: At the time of visit patient is resting comfortably on the exam table. Patient appears to be nontoxic. Complaints of cough, runny nose, body aches, sinus pressure, sinus congestion, and blowing out green nasal drainage and coughing up green phlegm. Denies any known fever. Denies any chest pain or shortness of breath. On exam patient has bilateral TMs intact and congested, green nasal drainage, moderate anterior turbinate inflammation, maxillary sinus tenderness, oral pharynx red with postnasal drip, lung sounds are clear, heart rates regular rate and rhythm. Plan: I suspect patient has acute bacterial rhinosinusitis. Prescription for prednisone and Augmentin was sent to the pharmacy. Supportive measures were discussed with the patient and they voiced understanding discharge instructions and agrees to treatment plan. Return precautions reviewed Differential Diagnosis Differential Diagnosis: Differential diagnostic considerations for upper respiratory infection include upper respiratory infection, croup, otitis media, sinusitis, viral infection, bronchitis, influenza, pharyngitis, strep, uvulitis. Discharge Plan Discharge Clinical Impression: Acute bacterial rhinosinusitis Patient Disposition: Home Condition: Stable Instructions: Antibiotic Form, Rhinosinusitis (ED) Additional Instructions: Take prescription medications only as prescribed-prednisone and Augmentin Increase fluids and stay well hydrated May take Tylenol or motrin as directed on bottle for pain/fever May use Flonase 1 spray in each nare daily May take OTC antihistamines such as Zyrtec or Claritin daily as directed on bottle May apply Vicks vapor rub to chest to open sinuses Sinus rinses for congestion Cepacol spray, cough drops, throat lozenges, warm tea with honey/lemon, gargle salt water to soothe throat BRAT diet for diarrhea Clear liquids x 24 hours then advance as tolerated for nausea/vomiting Go to the ED if you develop a worsening in your condition- high fever not controlled by Tylenol or Motrin, dehydration, weakness, lethargy, shortness of breath, or chest pain. Follow up with your PCP in 3-5 days if symptoms persist. Patient Language: [place] Prescriptions: New prednisone 20 mg tablet 40 mg PO DAILY 5 Days Qty: 10 0RF amoxicillin-pot clavulanate 875-125 mg tablet 1 tablet PO Q12H 7 Days Qty: 14 0RF No Action triamcinolone acetonide 0.1 % cream 1 applic topical TID PRN (Reason: rash) Qty: 80 0RF prednisone 20 mg tablet See Rx Instructions .ROUTE .COMPLEX Qty: 9 0RF Rx Instructions: Take 40mg x3 days, 20mg x3 days provitilze 2 tablet .Route DAILY Rx Instructions: daily Women's Multiple Vitamins 4 tablet PO DAILY Zyrtec 10 mg capsule 10 mg PO DAILY Qty: 90 0RF spironolactone 100 mg tablet 50 mg PO DAILY Qty: 90 0RF Follow-up/Referrals: Tom,Stacy Tuttle DO [Primary Care Provider, Unknown] Time of Disposition: 10:53 Quality NIHSS Nursing Documentation ED NIHSS nursing documentation: reviewed/agree
[2025-08-10 10:37] VITALS: BP 133/82; PULSE 81; RESP 16; TEMP 36; O2SAT 97
== END 2025-08-10 11:01 | disposition home or self-care (01) ==
PROVIDERS: Emergency Provider Nurse Practitioner Family; PCP Family Medicine
DX: J01.90 Acute sinusitis, unspecified (principal); M17.0 Bilateral primary osteoarthritis of knee; Z87.891 Personal history of nicotine dependence
CPT/HCPCS: 99213; G0463